=== PATIENT | male | born 1950 | race Caucasian/White ===

== ENCOUNTER 2020-06-11 16:49 | Emergency (ER) | payer OTHER, MEDICARE | END 2020-06-11 21:47 | disposition home or self-care (01) | LOC: FER 16:49 | DX: S20.211A Contusion of right front wall of thorax, initial encounter (principal); R32 Unspecified urinary incontinence; I10 Essential (primary) hypertension; V47.5XXA Car driver injured in collision with fixed or stationary object in traffic accident, initial encounter; Y92.410 Unspecified street and highway as the place of occurrence of the external cause | CPT/HCPCS: 36415; 70450; 71100; 72125; 84484; 93005 ==